=== PATIENT | female | born 1945 | race Caucasian/White ===

== ENCOUNTER 2020-05-11 08:41 | Outpatient (CLI) | payer BC, SELFPAY ==
--- NOTE | ~2020-05-11 | DEXA_ITS ---
Bone Density Report Name: Emily Helton Age: 74 Sex: Female Ethnicity: White Date of : 1945 Indication: osteopenia; monitoring treatment; height loss; postmenopausal Referring Provider: JANA, MIKAEL Kaur Study: Bone densitometry was performed. Exam Date: May 11, 2020 Accession number: [id number] Bone Density: Region BMD T-score Z-score Classification AP Spine (L1-L4) 0.937 -1.0 1.3 Normal Femoral Neck (Left) 0.611 -2.1 -0.1 Osteopenia Total Hip (Left) 0.772 -1.4 0.3 Osteopenia Total Hip Bilateral Avg 0.777 -1.4 0.4 Osteopenia Femoral Neck (Right) 0.630 -2.0 0.0 Osteopenia Total Hip (Right) 0.781 -1.3 0.4 Osteopenia World Health Organization criteria for BMD impression classify patients as: Normal (T-score at or above -1.0), Osteopenia (T-score between -1.0 and -2.5), or Osteoporosis (T-score at or below -2.5). 10-year Fracture Risk: FRAX not reported because: Treated for osteoporosis Previous Exams: Region Exam Age BMD T-score BMD Change BMD Change Date g/cm2 vs Baseline vs Previous AP Spine(L1-L4) 05/11/2020 74 0.937 -1.0 0.159(20.5%)# 0.074(8.6%)* 09/01/2018 73 0.862 -1.7 0.085(10.9%)# -0.041(-4.5%)* 05/07/2016 70 0.903 -1.3 0.125(16.1%)# 0.048(5.6%)# 02/22/2014 68 0.855 -1.7 0.077(10.0%)# 0.006(0.7%) 12/13/2011 66 0.849 -1.8 0.071(9.2%)# -0.037(-4.2%)# 11/29/2008 63 0.886 -1.5 0.108(13.9%)* 0.108(13.9%)* 01/03/2004 58 0.778 -2.4 Total Hip(Left) 05/11/2020 74 0.772 -1.4 0.043(6.0%)# 0.010(1.3%) 09/01/2018 73 0.762 -1.5 0.034(4.7%)# -0.047(-5.8%)* 05/07/2016 70 0.809 -1.1 0.081(11.1%)# 0.040(5.1%)# 02/22/2014 68 0.770 -1.4 0.041(5.7%)# -0.017(-2.2%) 12/13/2011 66 0.787 -1.3 0.059(8.1%)# -0.026(-3.2%)# 11/29/2008 63 0.813 -1.1 0.085(11.6%)* 0.085(11.6%)* 01/03/2004 58 0.728 -1.8 Total Hip(Right) 05/11/2020 74 0.781 -1.3 0.069(9.8%)# 0.027(3.6%)* 09/01/2018 73 0.754 -1.5 0.042(5.9%)# -0.038(-4.9%)* 05/07/2016 70 0.792 -1.2 0.081(11.3%)# 0.001(0.1%)# 02/22/2014 68 0.791 -1.2 0.080(11.2%)# 0.020(2.6%) 12/13/2011 66 0.771 -1.4 0.059(8.4%)# -0.010(-1.3%)# 11/29/2008 63 0.781 -1.3 0.069(9.7%)* 0.069(9.7%)* 01/03/2004 58 0.711 -1.9 *Denotes significance at 95% confidence level, LSC for AP Spine = 0.022 g/cm2, LSC for Total Hip = 0.027 g/cm2 Clinical Information Provided by Patient: Is being treated for osteoporosis Has u
== END 2020-05-11 08:42 | disposition home or self-care (01) ==
LOC: ANHIMG 08:44
PROVIDERS: PCP Internal Medicine; Visit Provider Internal Medicine
DX: E55.9 Vitamin D deficiency, unspecified (principal); Z78.0 Asymptomatic menopausal state; M85.852 Other specified disorders of bone density and structure, left thigh; M85.851 Other specified disorders of bone density and structure, right thigh
CPT/HCPCS: 77080

== ENCOUNTER 2021-04-03 10:10 | Outpatient (CLI) | payer BC, SELFPAY ==
--- NOTE | ~2021-04-03 | MM_ITS ---
EXAMINATION: MM screening [facility] BI w [place] HISTORY: Screening mammogram TECHNIQUE: Craniocaudal and mediolateral oblique 3-D tomosynthesis images were obtained and synthetic 2-D images were generated. CAD analysis was submitted and interpreted. COMPARISON: 09/07/2019, 09/01/2018, 08/05/2017 BREAST PARENCHYMAL COMPOSITION: There are scattered areas of fibroglandular density. FINDINGS: Scattered benign-appearing calcifications are present. There is no evidence of suspicious m ass, calcification, or architectural distortion to suggest malignancy in either breast. There has bee n no suspicious interval change. IMPRESSION: 1. No mammographic evidence of malignancy. 2. Recommend routine screening mammography in one year. BI-RADS Category 2: Benign finding(s). Reviewed, dictated and finalized at location A.
== END 2021-04-03 10:11 | disposition home or self-care (01) ==
LOC: ANHIMG 10:12
PROVIDERS: PCP Internal Medicine; Visit Provider Nurse Practitioner
DX: Z12.31 Encounter for screening mammogram for malignant neoplasm of breast (principal)
CPT/HCPCS: 77063; 77067

== ENCOUNTER 2023-07-27 08:18 | Outpatient (CLI) | payer BC, SELFPAY ==
--- NOTE | ~2023-07-27 | MM_ITS ---
EXAMINATION: MM screening [facility] BI w [place] HISTORY: Screening mammogram TECHNIQUE: Craniocaudal and mediolateral oblique 3-D tomosynthesis images were obtained and synthetic 2-D images were generated. CAD analysis was submitted and interpreted. COMPARISON: 04/03/2021, 09/07/2019 bilateral screening mammogram examinations BREAST PARENCHYMAL COMPOSITION: There are scattered areas of fibroglandular density. FINDINGS: Scattered bilateral benign calcifications are again noted, more numerous on the left. There is no evidence of suspicious mass, calcification, or architectural distortion to suggest malignancy in either breast. There has been no suspicious interval change. IMPRESSION: 1. No mammographic evidence of malignancy. 2. Recommend routine screening mammography in one year. BI-RADS Category 2: Benign finding(s). Reviewed, dictated and finalized at location A.
== END 2023-07-27 08:19 | disposition home or self-care (01) ==
LOC: ANHIMG 08:19
PROVIDERS: PCP Internal Medicine; Visit Provider Nurse Practitioner Women's Health
DX: Z12.31 Encounter for screening mammogram for malignant neoplasm of breast (principal)
CPT/HCPCS: 77063; 77067

== ENCOUNTER 2024-10-09 13:58 | Outpatient (CLI) | payer BC, SELFPAY ==
--- NOTE | ~2024-10-09 | DEXA_ITS ---
Bone Density Report Name: FREIDA SHAVER Age: 79 Sex: Female Ethnicity: White Date of : 1945 Indication: osteopenia; height loss; Referring Provider: JAZMÍN, BETSEY Briones Study: Bone densitometry was performed. Exam Date: October 09, 2024 Accession number: [id number] Bone Density: Region BMD T-score Z-score Classification AP Spine(L1-L4) 0.969 -0.7 1.9 Normal Femoral Neck (Left) 0.590 -2.3 -0.1 Osteopenia Total Hip (Left) 0.748 -1.6 0.4 Osteopenia Femoral Neck (Right) 0.575 -2.5 -0.2 Osteoporosis Total Hip (Right) 0.741 -1.6 0.3 Osteopenia Total Hip Mean 0.745 -1.6 0.4 Osteopenia World Health Organization criteria for BMD impression classify patients as: Normal (T-score at or above -1.0), Osteopenia (T-score between -1.0 and -2.5), or Osteoporosis (T-score at or below -2.5). 10-year Fracture Risk: FRAX not reported because: Some T-score for Spine Total or Hip Total or Femoral Neck at or below -2.5 Previous Exams: Region Exam Age BMD T-score BMD Change BMD Change Date g/cm2 vs Baseline vs Previous AP Spine (L1-L4) 10/09/2024 79 0.969 -0.7 0.114 (13.3%)# 0.032 (3.4%)* 05/11/2020 74 0.937 -1.0 0.082 (9.5%)# 0.074 (8.6%)* 09/01/2018 73 0.862 -1.7 0.007 (0.8%)# -0.041 (-4.5%) 05/07/2016 70 0.903 -1.3 0.048 (5.6%)# 0.048 (5.6%)# 02/22/2014 68 0.855 -1.7 Total Hip(Left) 10/09/2024 79 0.748 -1.6 -0.022 (-2.8%) -0.024 (-3.1%) 05/11/2020 74 0.772 -1.4 0.002 (0.3%)# 0.010 (1.3%) 09/01/2018 73 0.762 -1.5 -0.008 (-1.0%) -0.047 (-5.8%) 05/07/2016 70 0.809 -1.1 0.040 (5.1%)# 0.040 (5.1%)# 02/22/2014 68 0.770 -1.4 Total Hip(Right) 10/09/2024 79 0.741 -1.6 -0.050 (-6.4%) -0.040 (-5.1%) 05/11/2020 74 0.781 -1.3 -0.010 (-1.3%) 0.027 (3.6%)* 09/01/2018 73 0.754 -1.5 -0.038 (-4.8%) -0.038 (-4.9%) 05/07/2016 70 0.792 -1.2 0.001 (0.1%)# 0.001 (0.1%)# 02/22/2014 68 0.791 -1.2 *Denotes significance at 95% confidence level, LSC for AP Spine = 0.022 g/cm2, LSC for Total Hip = 0.027 g/cm2 # Denotes dissimilar scan types or analysis methods Clinical Information Provided by Patient: Has used the following medications: HRT (i.e. estrogen/hormone therapy), Vitamin D, Calcium Patient maximum height was 65 Menopause Age: 40 No regular weight bearing exercise Does not regularly consume dairy products Drinks caffeinated beverages Onset of menses at age 17 Number of children 3 Impression: The patient has osteoporosis, based on the Right Femoral Neck T-score. The BMD for the Total Hip(Right) decreased, changing by -5.1% since the last DXA exam. Discussion: INCREASED RISK OF FRACTURE. BONE DENSITY IS UNDESIRABLY LOW AT ONE OR MORE SKELETAL SITES, CONSISTENT WITH POSTMENOPAUSAL OSTEOPOROSIS. This patient's lowest T-score meets the World Health Organization's (WHO) criteria for osteoporosis at one or more sites (T-score -2.5 or below). In untreated patients, the risk of osteoporotic fracture increases approximately two-fold for each 1.0 SD decrease in T-score. Low bone density is not the only risk factor for fracture; also consider factors such as patient's age, frailty or poor health, risk of falling, risk of injury, previous osteoporotic fracture, family history of osteoporosis, cigarette smoking, low body weight, etc. Not everyone with low bone mineral density has osteoporosis; osteomalacia and other metabolic bone disorders should also be considered. Patients who have osteoporosis should be evaluated for specific diseases and conditions (secondary causes) that may cause or contribute to bone loss. The [place] [employer]ocr[employer] (AACE) and National Osteoporosis Foundation (NOF) recommend pharmacologic intervention for all postmenopausal women whose T-score is in this range. The patient should follow a healthful lifestyle (good nutrition with adequate calcium and vitamin D, and appropriate weight-bearing exercise). Follow-Up: Consider a repeat BMD and Vertebral Fracture Assessment (VFA) exam in 2 years or sooner if medically necessary, to reassess this patient's status. Reported by: GUSTAVO on 10/09/2024 2:55:00 PM. Reviewed, dictated and finalized at location AMark Anthony CALDWELL
--- NOTE | ~2024-10-09 | MM_ITS ---
EXAMINATION: MM screening [facility] BI w [place] HISTORY: Screening mammogram TECHNIQUE: Craniocaudal and mediolateral oblique 3-D tomosynthesis images were obtained and synthetic 2-D images were generated. CAD analysis was submitted and interpreted. COMPARISON: 07/27/2023, 04/03/2021, 09/07/2019 BREAST PARENCHYMAL COMPOSITION:Not Dense. There are scattered areas of fibroglandular density. FINDINGS: No suspicious mass, calcification, or architectural distortion are identified in either melva ast to suggest malignancy. There has been no suspicious interval change. IMPRESSION: No mammographic evidence of malignancy. Recommend routine screening mammography in one year. BI-RADS Category 1: Negative Reviewed, dictated and finalized at location . GLE PACKER
== END 2024-10-09 13:59 | disposition home or self-care (01) ==
LOC: ANHIMG 14:00
PROVIDERS: PCP Internal Medicine; Visit Provider Nurse Practitioner Women's Health
DX: Z12.31 Encounter for screening mammogram for malignant neoplasm of breast (principal); N95.1 Menopausal and female climacteric states; M85.852 Other specified disorders of bone density and structure, left thigh; M85.851 Other specified disorders of bone density and structure, right thigh; M81.0 Age-related osteoporosis without current pathological fracture
CPT/HCPCS: 77063; 77067; 77080